=== PATIENT | female | born 1995 | race African-American/Black ===

== ENCOUNTER 2018-03-17 18:48 | Emergency (ER) | payer OTHER ==
[2018-03-17 18:53] VITALS: BP 117/73
--- NOTE | 2018-03-17 18:58 | ED Physician Documentation ---
History of Present Illness - Stated complaint Stated Complaint: FEMALE - Chief complaint Chief Complaint: General - History obtained from History obtained from: Patient - History of Present Illness Timing: How many weeks ago (4) Pain level max: 3 Pain level now: 1 Improved by: azo yesterday Worsened by: urination - Additonal information Additional information: Patient is a 22-year-old female who presents to the emergency department with intermittent dysuria for the past 4 weeks. Has become increasingly worse over the past 3 days. Also having increased frequency and urgency. No fevers. Does have mild low back pain. No vomiting. No possibility of . No changes in sexual partners. Has not been sexually active for the past 6 weeks. Review of Systems Constitutional: denies: Fever, Chills Nose: denies: Rhinorrhea / runny nose, Congestion Throat: denies: Sore throat Respiratory: denies: Cough GI: denies: Abdominal Pain, Nausea, Vomiting, Diarrhea : reports: Dysuria, Frequency, Hesitancy. denies: Incontinent, Hematuria, Discharge Skin: denies: Rash Musculoskeletal: denies: Neck pain, Back pain Neurologic: denies: Headache PD PAST MEDICAL HISTORY - Past Medical History Past Medical History: Yes : Other (UTI) - Past Surgical History Past Surgical History: No - Present Medications Home Medications: Ambulatory Orders Medication Instructions Recorded Confirmed Nitrofurantoin Monohyd/M-Cryst 100 mg PO BID #10 capsule 03/17/18 [Macrobid 100 mg Capsule] - Allergies Allergies/Adverse Reactions: Allergies Allergy/AdvReac Type Severity Reaction Status Date / Time No Known Drug Allergies Allergy Verified 03/17/18 18:53 - Living Situation Living Arrangement: reports: At home - Social History Does the pt smoke?: No Does the pt have substance abuse?: No - Family History Family history: reports: Non contributory PD ED PE NORMAL - Vitals Vital signs reviewed: Yes - General General: Alert and oriented X 3, No acute distress - HEENT HEENT: Moist mucous membranes - Neck Neck: Supple, no meningeal sign - Cardiac Cardiac: RRR - Respiratory Respiratory: No respiratory distress, Clear bilaterally - Abdomen Abdomen: Soft, Non tender, Non distended - Female Female : Pt declined - Back Back: No CVA TTP - Derm Derm: Warm and dry, No rash - Neuro Neuro: Alert and oriented X 3 Results - Vitals Vitals: Vital Signs - 24 hr 03/17/18 18:51 Temperature 37.4 C Heart Rate 69 Respiratory 16 Rate Blood Pressure 117/73 O2 Saturation 100 - Labs Labs: Laboratory Tests 03/17/18 03/17/18 18:56 18:56 Urine Color YELLOW Urine Clarity CLEAR Urine pH 6.5 Ur Specific [place] >=1.030 H >=1.030 H Urine Protein NEGATIVE Urine Glucose (UA) NEGATIVE Urine Ketones NEGATIVE Urine Occult Blood TRACE-INTA Urine Nitrite NEGATIVE Urine Bilirubin NEGATIVE Urine Urobilinogen 0.2 (NORMAL) Ur Leukocyte Esterase NEGATIVE Ur Microscopic Review NOT INDICATED Urine Culture Comments NOT INDICATED Urine HCG, Qual NEGATIVE PD MEDICAL DECISION MAKING - ED course Complexity details: reviewed results, re-evaluated patient, considered differential, d/w patient ED course: Patient is a 22-year-old female presents to the emergency department with a history suggestive of a UTI. No STD risk factors. Declines a pelvic examination. Does understand that by treating for a presumed UTI we could miss alternative diagnoses. Patient states that she will follow-up closely with her doctor if she fails to improve as expected. Patient counseled regarding signs and symptoms for which I believe and urgent re-evaluation would be necessary. Patient with good understanding of and agreement to plan and is comfortable going home at this time This document was made in part using voice recognition software. While efforts are made to proofread this document, sound alike and grammatical errors may occur. Departure - Departure Disposition: 01 Home, Self Care Clinical Impression: UTI (urinary tract infection) Qualifiers: Urinary tract infection type: acute cystitis Hematuria presence: without hematuria Qualified Code(s): N30.00 - Acute cystitis without hematuria Condition: Good Instructions: ED UTI Cystitis Female Follow-Up: your,doctor in 4-5 days if not better [Other] Prescriptions: Nitrofurantoin Monohyd/M-Cryst [Macrobid 100 mg Capsule] 100 mg PO BID #10 capsule Comments: Take all antibiotics until gone. Return if you worsen. If you are not improving after the antibiotics, you should follow-up with your doctor for a pelvic exam for other etiologies of your symptoms. Discharge Date/Time: 03/17/18 19:37
[2018-03-17 19:04] LABS: BILIRUBIN,URINE NEGATIVE (NEGATIVE); GLUCOSE, URINE (UA) NEGATIVE (NEGATIVE); KETONES,URINE (UA) NEGATIVE (NEGATIVE); LEUKOCYTE ESTERASE, URINE NEGATIVE (NEGATIVE); NITRITE,URINE NEGATIVE (NEGATIVE); OCCULT BLOOD,URINE TRACE-INTA (NEGATIVE); PH,URINE 6.5 PH (5.0-7.5); PROTEIN,URINE NEGATIVE (NEGATIVE); UROBILINOGEN,URINE 0.2 (NORMAL) E.U./dL (NORMAL)
[2018-03-17 19:05] LABS: CLARITY,URINE CLEAR (CLEAR)
[2018-03-17 19:08] LABS: HCG UR QUAL NEGATIVE
[2018-03-17] MEDS ORDERED: NITROFURANTOIN MACRO 100 MG CAPSULE PO STA (19:21)
[2018-03-17] MEDS ORDERED: PHENAZOPYRIDINE 100 MG TABLET PO STA (19:21)
== END 2018-03-17 19:37 | disposition home or self-care (01) ==
LOC: ED 18:48
DX: N30.00 Acute cystitis without hematuria (principal)
CPT/HCPCS: 81003; 81025; 99283; A9270; 81001; 87086

== ENCOUNTER 2018-03-25 21:34 | Emergency (ER) | payer OTHER ==
[2018-03-25 22:22] LABS: BILIRUBIN,URINE NEGATIVE (NEGATIVE); GLUCOSE, URINE (UA) NEGATIVE (NEGATIVE); KETONES,URINE (UA) TRACE mg/dL (NEGATIVE); LEUKOCYTE ESTERASE, URINE NEGATIVE (NEGATIVE); NITRITE,URINE NEGATIVE (NEGATIVE); OCCULT BLOOD,URINE SMALL (NEGATIVE); PH,URINE 6.5 PH (5.0-7.5); PROTEIN,URINE NEGATIVE (NEGATIVE); UROBILINOGEN,URINE 0.2 (NORMAL) E.U./dL (NORMAL)
[2018-03-25 22:25] LABS: CLARITY,URINE CLEAR (CLEAR)
[2018-03-25 22:26] LABS: HCG UR QUAL NEGATIVE
[2018-03-25 22:29] LABS: BACTERIA,URINE Few /HPF (None Seen); MUCUS,URINE Few Strands; SQUAMOUS EPITHELIAL CELL,UR MOD Squamous (<= Few)
[2018-03-25] MEDS ORDERED: LIDOCAINE PATCH 5% TOP STA (23:19)
[2018-03-25] MEDS ORDERED: IBUPROFEN 600 MG TABLET PO STA (23:19)
--- NOTE | 2018-03-25 23:33 | ED Physician Documentation ---
PD HPI BACK PAIN - Stated complaint Stated Complaint: L SIDE PX - Chief complaint Chief Complaint: Abd Pain - History obtained from History obtained from: Patient - History of Present Illness Timing - onset: Today Timing - details: Gradual onset, Still present Location: Lower, Left Quality: Pain, Spasm Associated symptoms: No: Fever, Weakness Worsened by: Movement, Lifting Similar symptoms before: No diagnosis Recently seen: Not recently seen - Additional information Additional information: Patient is a 22 year old female with no significant past medical history who is presenting to the emergency department for left sided pain. patient states that she was running with a weighted vest when she developed some pain. patient reports that tonight when she tried to go to sleep she couldn't get comfortable so she came in for evaluation. Review of Systems Ten Systems: 10 systems reviewed and negative : denies: Dysuria, Frequency, Discharge, Vaginal bleeding Musculoskeletal: reports: Back pain PD PAST MEDICAL HISTORY - Past Medical History Past Medical History: Yes : Other - Past Surgical History Past Surgical History: No - Present Medications Home Medications: Ambulatory Orders Medication Instructions Recorded Confirmed Nitrofurantoin Monohyd/M-Cryst 100 mg PO BID #10 capsule 03/17/18 [Macrobid 100 mg Capsule] Cyclobenzaprine [Flexeril] 10 mg PO TID PRN #10 tablet 03/25/18 Lidocaine Patch 5% [Lidoderm Patch] 1 each TOP DAILY #10 patch 03/25/18 - Allergies Allergies/Adverse Reactions: Allergies Allergy/AdvReac Type Severity Reaction Status Date / Time No Known Drug Allergies Allergy Verified 03/17/18 18:53 - Social History Does the pt smoke?: No Smoking Status: Never smoker Does the pt have substance abuse?: No - POLST Patient has POLST: No PD ED PE NORMAL - Vitals Vital signs reviewed: Yes - General General: Alert and oriented X 3, No acute distress - HEENT HEENT: Atraumatic, PERRL - Cardiac Cardiac: RRR - Respiratory Respiratory: No respiratory distress - Abdomen Abdomen: Soft, Non tender, Non distended - Derm Derm: Normal color - Extremities Extremities: No deformity - Neuro Neuro: Alert and oriented X 3, No motor deficit Eye Opening: Spontaneous Motor: Obeys Commands Verbal: Oriented GCS Score: 15 - Psych Psych: Normal mood PD ED PE EXPANDED - Back Back: Soft tissue tenderness (mild tenderness to palaption of left lateral back) Results - Vitals Vitals: Vital Signs - 24 hr 03/25/18 03/25/18 21:42 23:08 Temperature 36.8 C Heart Rate 75 69 Respiratory 18 16 Rate Blood Pressure 100/61 109/80 O2 Saturation 100 99 Oxygen O2 Source Room air - Labs Labs: Laboratory Tests 03/25/18 03/25/18 22:15 22:15 Urine Color YELLOW Urine Clarity CLEAR Urine pH 6.5 Ur Specific [place] 1.025 1.025 Urine Protein NEGATIVE Urine Glucose (UA) NEGATIVE Urine Ketones TRACE Urine Occult Blood SMALL H Urine Nitrite NEGATIVE Urine Bilirubin NEGATIVE Urine Urobilinogen 0.2 (NORMAL) Ur Leukocyte Esterase NEGATIVE Urine RBC 6-10 H Urine WBC 0-3 Ur Squamous Epith Cells MOD Squamous H Urine Bacteria Few Urine Mucus Few Strands Ur Microscopic Review INDICATED Urine Culture Comments NOT INDICATED Urine HCG, Qual NEGATIVE PD MEDICAL DECISION MAKING - ED course Complexity details: reviewed old records, reviewed results, re-evaluated patient , considered differential, d/w patient ED course: patient was seen and examined at bedside. Urine was collected. patient showed no sign of acute infection. Patient was treated with ibuprofen and lidoderm patch. Patient required no further work up and was stable for discharge with outpatient follow up. Departure - Departure Disposition: 01 Home, Self Care Clinical Impression: Low back strain Condition: Good Instructions: ED Spasm Back No Trauma Follow-Up: primary,care provider [Other] - Within 3 Days Prescriptions: Cyclobenzaprine [Flexeril] 10 mg PO TID PRN #10 tablet PRN Reason: Spasms Lidocaine Patch 5% [Lidoderm Patch] 1 each TOP DAILY #10 patch Comments: Your diagnostics today were within normal limits. Your symptoms are likely secondary to a muscle strain. You should alternate between motrin and tylenol as needed for pain. You should also apply ice and heat as well as the lidoderm patch. You can take the flexeril for spasm but you cannot drive, work or operate heavy machinery while taking it. You should follow up with your doctor if your symptoms persist. You may return to the emergency department at any time for new, worsening or uncontrollable symptoms. Forms: Activity restrictions
[2018-03-26 00:21] VITALS: BP 110/68
== END 2018-03-25 23:45 | disposition home or self-care (01) ==
LOC: ED 21:34
DX: S39.012A Strain of muscle, fascia and tendon of lower back, initial encounter (principal); Y93.02 Activity, running
CPT/HCPCS: 81001; 81025; 99283; A9270; 81003; 87086

== ENCOUNTER 2018-04-20 09:29 | Emergency (ER) | payer OTHER ==
[2018-04-20 09:51] LABS: BILIRUBIN,URINE NEGATIVE (NEGATIVE); GLUCOSE, URINE (UA) NEGATIVE (NEGATIVE); KETONES,URINE (UA) NEGATIVE (NEGATIVE); LEUKOCYTE ESTERASE, URINE NEGATIVE (NEGATIVE); NITRITE,URINE NEGATIVE (NEGATIVE); OCCULT BLOOD,URINE NEGATIVE (NEGATIVE); PROTEIN,URINE NEGATIVE (NEGATIVE); UROBILINOGEN,URINE 0.2 (NORMAL) E.U./dL (NORMAL)
[2018-04-20 09:54] LABS: CLARITY,URINE CLEAR (CLEAR)
[2018-04-20 09:55] LABS: HCG UR QUAL NEGATIVE
--- NOTE | 2018-04-20 11:30 | ED Physician Documentation ---
History of Present Illness - Stated complaint Stated Complaint: FEMALE - Chief complaint Chief Complaint: UTI - Additonal information Additional information: hx from pt 22 f found out her SO has herpes wants to be tested Review of Systems Constitutional: denies: Fever : reports: Dysuria. denies: Now EGA Skin: denies: Lesions PD PAST MEDICAL HISTORY - Past Medical History Past Medical History: No : Other - Past Surgical History Past Surgical History: No - Present Medications Home Medications: Ambulatory Orders Medication Instructions Recorded Confirmed No Known Home Medications [No 04/20/18 04/20/18 Known Home Medications] - Allergies Allergies/Adverse Reactions: Allergies Allergy/AdvReac Type Severity Reaction Status Date / Time No Known Drug Allergies Allergy Verified 04/20/18 09:37 - Social History Does the pt smoke?: No Smoking Status: Never smoker Does the pt drink ETOH?: No Does the pt have substance abuse?: No - Immunizations Immunizations are current?: Yes - POLST Patient has POLST: No PD ED PE NORMAL - Vitals Vital signs reviewed: Yes - General General: Alert and oriented X 3 - Cardiac Cardiac: RRR - Respiratory Respiratory: No respiratory distress, Clear bilaterally - Abdomen Abdomen: Non tender - Female 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 : 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), Other (no herpes lesions, no dc, no CMT, cultures taken for all) Results - Vitals Vitals: Vital Signs - 24 hr 04/20/18 09:33 Temperature 37.2 C Heart Rate 79 Respiratory 18 Rate Blood Pressure 119/55 L O2 Saturation 100 Oxygen O2 Source Room air - Labs Labs: Laboratory Tests 04/20/18 09:40 Urine Color YELLOW Urine Clarity CLEAR Urine pH 7.0 Ur Specific [place] 1.015 Urine Protein NEGATIVE Urine Glucose (UA) NEGATIVE Urine Ketones NEGATIVE Urine Occult Blood NEGATIVE Urine Nitrite NEGATIVE Urine Bilirubin NEGATIVE Urine Urobilinogen 0.2 (NORMAL) Ur Leukocyte Esterase NEGATIVE Ur Microscopic Review NOT INDICATED Urine Culture Comments NOT INDICATED Urine HCG, Qual NEGATIVE Departure - Departure Disposition: 01 Home, Self Care Clinical Impression: Exposure to STD Condition: Good Instructions: STD Poss Comments: Your exam was normal - no sign of herpes. We took swabs to est for bacterial vaginosis, trichomonas, gonorrhea, chlamydia as well as herpes The ER staff will call you if any of the results are positive. [facility] can also have [facility] for results. Given the normal exam I would not recommend any treatment unless the tests come back positive If you think you might need testing for HIV, that would best [place]
[2018-04-20 11:43] VITALS: BP 110/72
== END 2018-04-20 11:44 | disposition home or self-care (01) ==
LOC: ED 09:29
DX: Z20.2 Contact with and (suspected) exposure to infections with a predominantly sexual mode of transmission (principal)
CPT/HCPCS: 81001; 81003; 81025; 81599; 86695; 86696; 87086; 87210; 87491; 87529; 87591; 99282; 99283

== ENCOUNTER 2018-05-05 16:21 | Emergency (ER) | payer OTHER ==
[2018-05-05 16:36] VITALS: BP 119/67
[2018-05-05 16:52] LABS: BILIRUBIN,URINE NEGATIVE (NEGATIVE); GLUCOSE, URINE (UA) NEGATIVE (NEGATIVE); KETONES,URINE (UA) NEGATIVE (NEGATIVE); LEUKOCYTE ESTERASE, URINE NEGATIVE (NEGATIVE); NITRITE,URINE NEGATIVE (NEGATIVE); OCCULT BLOOD,URINE TRACE-INTA (NEGATIVE); PROTEIN,URINE NEGATIVE (NEGATIVE); UROBILINOGEN,URINE 0.2 (NORMAL) E.U./dL (NORMAL)
[2018-05-05 16:57] LABS: CLARITY,URINE CLEAR (CLEAR); HCG UR QUAL NEGATIVE
--- NOTE | 2018-05-05 16:58 | ED Physician Documentation ---
History of Present Illness - Stated complaint Stated Complaint: FEMALE - Chief complaint Chief Complaint: UTI - History obtained from History obtained from: Patient - History of Present Illness Timing: How many weeks ago (1) Pain level max: 3 Pain level now: 3 Improved by: nothing Worsened by: nothing - Additonal information Additional information: Patient is a 22-year-old female who presents to the emergency department complaining of vaginal discharge, itching and discomfort. Was recently treated with azithromycin for chlamydia. Tested negative for gonorrhea. She is concerned that she may have a yeast infection or bacterial vaginitis. No fevers. No abdominal pain. No diarrhea or constipation. No vomiting. Denies any possibility of . Review of Systems Constitutional: denies: Fever, Chills Ears: denies: Ear pain Nose: denies: Rhinorrhea / runny nose, Congestion Respiratory: denies: Cough GI: denies: Abdominal Pain, Nausea, Vomiting, Diarrhea : reports: Discharge. denies: Vaginal bleeding Skin: denies: Rash Musculoskeletal: denies: Neck pain, Back pain Neurologic: denies: Focal weakness, Numbness, Headache PD PAST MEDICAL HISTORY - Past Medical History Past Medical History: No : Other - Past Surgical History Past Surgical History: No - Present Medications Home Medications: Ambulatory Orders Medication Instructions Recorded Confirmed Metronidazole [Flagyl] 500 mg PO BID #14 tablet 05/05/18 - Allergies Allergies/Adverse Reactions: Allergies Allergy/AdvReac Type Severity Reaction Status Date / Time No Known Drug Allergies Allergy Verified 05/05/18 17:22 - Living Situation Living Arrangement: reports: At home - Social History Does the pt smoke?: No Smoking Status: Never smoker Does the pt drink ETOH?: No Does the pt have substance abuse?: No - Family History Family history: reports: Non contributory - Immunizations Immunizations are current?: Yes - POLST Patient has POLST: No PD ED PE NORMAL - Vitals Vital signs reviewed: Yes - General General: Alert and oriented X 3 - HEENT HEENT: Moist mucous membranes - Neck Neck: Supple, no meningeal sign - Cardiac Cardiac: RRR - Respiratory Respiratory: No respiratory distress, Clear bilaterally - Abdomen Abdomen: Soft, Non tender, Non distended - 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 no CMT, no adnexal tenderness.) - Back Back: No CVA TTP, No spinal TTP - Derm Derm: Warm and dry - Neuro Neuro: Alert and oriented X 3 - Psych Psych: Normal mood, Normal affect Results - Vitals Vitals: Vital Signs - 24 hr 05/05/18 16:31 Temperature 37.4 C Heart Rate 75 Respiratory 16 Rate Blood Pressure 119/67 O2 Saturation 100 Oxygen O2 Source Room air - Labs Labs: Microbiology 05/05/18 17:09 TERESA Preparation - Final Other - Vaginal 05/05/18 17:09 Wet Prep - Final Vaginal Laboratory Tests 05/05/18 16:45 Urine Color YELLOW Urine Clarity CLEAR Urine pH 7.0 Ur Specific [place] 1.020 Urine Protein NEGATIVE Urine Glucose (UA) NEGATIVE Urine Ketones NEGATIVE Urine Occult Blood TRACE-INTA Urine Nitrite NEGATIVE Urine Bilirubin NEGATIVE Urine Urobilinogen 0.2 (NORMAL) Ur Leukocyte Esterase NEGATIVE Ur Microscopic Review NOT INDICATED Urine Culture Comments NOT INDICATED Urine HCG, Qual NEGATIVE PD MEDICAL DECISION MAKING - ED course Complexity details: reviewed results, re-evaluated patient, considered differential, d/w patient ED course: Patient is a 22-year-old female who presents to the emergency department with vaginal discharge and pain. Recently treated for chlamydia. Will resend her Chlamydia testing to ensure the infection is cleared. Appears to have bacterial vaginitis and will place on Flagyl for this. Patient counseled regarding signs and symptoms for which I believe and urgent re-evaluation would be necessary. Patient with good understanding of and agreement to plan and is comfortable going home at this time This document was made in part using voice recognition software. While efforts are made to proofread this document, sound alike and grammatical errors may occur. - Sepsis Event Vital Signs: Vital Signs - 24 hr 05/05/18 16:31 Temperature 37.4 C Heart Rate 75 Respiratory 16 Rate Blood Pressure 119/67 O2 Saturation 100 Oxygen O2 Source Room air Departure - Departure Disposition: 01 Home, Self Care Clinical Impression: Bacterial vaginitis Condition: Good Instructions: ED Vaginosis Bacterial Follow-Up: your,doctor in 1 week if not better [Other] Prescriptions: Metronidazole [Flagyl] 500 mg PO BID #14 tablet Comments: Take the Flagyl until gone. Return if you worsen. Do not drink alcohol with this visit will make you violently ill. Return if you worsen Discharge Date/Time: 05/05/18 17:42
[2018-05-05] MEDS ORDERED: metroNIDAZOLE 250 MG TABLET PO STA (17:32)
== END 2018-05-05 17:42 | disposition home or self-care (01) ==
LOC: ED 16:21
DX: N76.0 Acute vaginitis (principal); B96.89 Other specified bacterial agents as the cause of diseases classified elsewhere
CPT/HCPCS: 81003; 81025; 87210; 87220; 87491; 87591; 99283; A9270; 81001; 87086

== ENCOUNTER 2018-05-29 12:50 | Emergency (ER) | payer OTHER ==
[2018-05-29 13:08] VITALS: BP 103/47
[2018-05-29 13:24] LABS: BILIRUBIN,URINE NEGATIVE (NEGATIVE); GLUCOSE, URINE (UA) NEGATIVE (NEGATIVE); KETONES,URINE (UA) NEGATIVE (NEGATIVE); LEUKOCYTE ESTERASE, URINE NEGATIVE (NEGATIVE); NITRITE,URINE NEGATIVE (NEGATIVE); OCCULT BLOOD,URINE NEGATIVE (NEGATIVE); PROTEIN,URINE NEGATIVE (NEGATIVE); UROBILINOGEN,URINE 0.2 (NORMAL) E.U./dL (NORMAL)
[2018-05-29 13:26] LABS: CLARITY,URINE CLEAR (CLEAR); HCG UR QUAL NEGATIVE
--- NOTE | 2018-05-29 13:52 | ED Physician Documentation ---
PD HPI FEMALE - Stated complaint Stated Complaint: FEMALE - Chief complaint Chief Complaint: General - History obtained from History obtained from: Patient - History of Present Illness Timing - onset: How many days ago (3) Timing - duration: Days (3) Timing - details: Gradual onset, Still present Associated symptoms: Vaginal discharge Contributing factors: control, Other (has had BV previously). No: Exposed to STD Similar symptoms before: Diagnosis (BV) Recently seen: Not recently seen - Additional information Additional information: 22-year-old female has had a prior history of chlamydia which was treated with doxycycline and following that she developed bacterial vaginosis of foul- smelling discharge and she was treated then with metronidazole with rapid resolution of her symptoms. She has had a recent menstrual period and following this she has had return of this foul-smelling yellowish discharge. She denies any exposure to STD and states the symptoms and discharge are similar to previous for bacterial vaginosis. Review of Systems Constitutional: denies: Fever Eyes: denies: Decreased vision Ears: denies: Ear pain Nose: denies: Congestion Throat: denies: Sore throat Cardiac: denies: Chest pain / pressure, Palpitations Respiratory: denies: Dyspnea, Cough GI: denies: Abdominal Pain, Nausea, Vomiting : reports: Discharge. denies: Dysuria, Frequency Skin: denies: Rash Musculoskeletal: denies: Neck pain, Back pain, Extremity pain PD PAST MEDICAL HISTORY - Past Medical History : Other - Past Surgical History Past Surgical History: No - Present Medications Home Medications: Ambulatory Orders Medication Instructions Recorded Confirmed Metronidazole [Flagyl] 500 mg PO BID #14 tablet 05/05/18 Metronidazole 500 mg PO BID #14 tablet 05/29/18 - Allergies Allergies/Adverse Reactions: Allergies Allergy/AdvReac Type Severity Reaction Status Date / Time No Known Drug Allergies Allergy Verified 05/05/18 17:22 - Social History Does the pt smoke?: No Smoking Status: Never smoker Does the pt drink ETOH?: No Does the pt have substance abuse?: No - Immunizations Immunizations are current?: Yes - POLST Patient has POLST: No PD ED PE NORMAL - Vitals Vital signs reviewed: Yes (normal ) - General General: Alert and oriented X 3, No acute distress, Well developed/nourished - HEENT HEENT: Atraumatic, PERRL, EOMI - Respiratory Respiratory: No respiratory distress - Derm Derm: Normal color, Warm and dry, No rash - Extremities Extremities: No deformity, No edema - Neuro Neuro: Alert and oriented X 3, guest relation officer 2-12 intact, No motor deficit, No sensory deficit, Normal speech Eye Opening: Spontaneous Motor: Obeys Commands Verbal: Oriented GCS Score: 15 - Psych Psych: Normal mood, Normal affect Results - Vitals Vitals: Vital Signs - 24 hr 05/29/18 12:59 Temperature 36.7 C Heart Rate 60 Respiratory 16 Rate Blood Pressure 103/47 L O2 Saturation 99 Oxygen O2 Source Room air - Labs Labs: Laboratory Tests 05/29/18 05/29/18 13:11 13:11 Urine Color YELLOW Urine Clarity CLEAR Urine pH 6.0 Ur Specific [place] 1.025 1.025 Urine Protein NEGATIVE Urine Glucose (UA) NEGATIVE Urine Ketones NEGATIVE Urine Occult Blood NEGATIVE Urine Nitrite NEGATIVE Urine Bilirubin NEGATIVE Urine Urobilinogen 0.2 (NORMAL) Ur Leukocyte Esterase NEGATIVE Ur Microscopic Review NOT INDICATED Urine Culture Comments NOT INDICATED Urine HCG, Qual NEGATIVE PD MEDICAL DECISION MAKING - ED course Complexity details: reviewed old records, reviewed results, re-evaluated patient , considered differential, d/w patient ED course: 22-year-old female with a prior history of bacterial vaginosis that rapidly improved with use of metronidazole has recurrence of her symptoms. She has a foul-smelling yellowish discharge. She has opted for treatment without specimen today. I have encouraged her to follow-up with GEOLOGIC TECHNICIAN should she have recurrence of her symptoms again. - Sepsis Event Vital Signs: Vital Signs - 24 hr 05/29/18 12:59 Temperature 36.7 C Heart Rate 60 Respiratory 16 Rate Blood Pressure 103/47 L O2 Saturation 99 Oxygen O2 Source Room air Departure - Departure Disposition: 01 Home, Self Care Clinical Impression: Bacterial vaginitis Instructions: ED Vaginosis Bacterial Follow-Up: YOVANNY DE LUNA [Primary Care Provider] - Prescriptions: Metronidazole 500 mg PO BID #14 tablet Forms: Activity restrictions
== END 2018-05-29 15:10 | disposition home or self-care (01) ==
LOC: ED 12:50
DX: N76.0 Acute vaginitis (principal)
CPT/HCPCS: 81001; 81003; 81025; 87086; 99283

== ENCOUNTER 2018-05-30 14:31 | Emergency (ER) | payer OTHER ==
--- NOTE | 2018-05-30 14:57 | ED Physician Documentation ---
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 She has been having more discharge and was seen yesterday and diagnosed likely with likely BV, she refused a pelvic exam at the time per her. Now with increased discharge today and would like to pursue retesting for BV versus STDs. There was a little bit of blood in the discharge and she also had a panic attack but denies drinking alcohol.) Review of Systems Constitutional: denies: Fever, Chills Nose: denies: Rhinorrhea / runny nose, Congestion Cardiac: denies: Chest pain / pressure, Palpitations Respiratory: denies: Dyspnea, Cough GI: denies: Abdominal Pain PD PAST MEDICAL HISTORY - Past Medical History : Other - Past Surgical History Past Surgical History: No - Present Medications Home Medications: Ambulatory Orders Medication Instructions Recorded Confirmed Metronidazole [Flagyl] 500 mg PO BID #14 tablet 05/05/18 Metronidazole 500 mg PO BID #14 tablet 05/29/18 Clindamycin Phosphate [Clindesse] 5 gm VG DAILY #7 crm.er..g. 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 (Elli Garcia RN), Other (A small amount of yellowish discharge with a slight blood-tinged, no bimanual tenderness.) - Neuro Neuro: Alert and oriented X 3, Normal speech Results - Vitals Vitals: Vital Signs - 24 hr 05/30/18 14:33 Temperature 36.9 C Heart Rate 53 L Respiratory 16 Rate Blood Pressure 143/105 H O2 Saturation 98 Oxygen O2 Source Room air - Labs Labs: Microbiology 05/30/18 15:40 Wet Prep - Final Genital - Cervix Laboratory Tests 05/30/18 05/30/18 05/30/18 15:10 15:10 15:23 WBC 4.9 RBC 4.37 Hgb 12.7 Hct 38.8 MCV 88.8 MCH 29.1 MCHC 32.8 RDW 13.1 Sodium 139 Potassium 3.7 Chloride 105 Carbon Dioxide 27 Anion Gap 7.0 BUN 16 Creatinine 0.9 Estimated GFR (MDRD) 97 Glucose 94 Calcium 9.2 Total Bilirubin 0.5 AST 24 ALT 17 Alkaline Phosphatase 81 Total Protein 7.6 Albumin 4.1 Globulin 3.5 Albumin/Globulin Ratio 1.2 Lipase 30 Urine Color YELLOW Urine Clarity CLEAR Urine pH 6.0 Ur Specific Mayo 1.025 Urine Protein TRACE Urine Glucose (UA) NEGATIVE Urine Ketones TRACE Urine Occult Blood NEGATIVE Urine Nitrite NEGATIVE Urine Bilirubin NEGATIVE Urine Urobilinogen 0.2 (NORMAL) Ur Leukocyte Esterase NEGATIVE Ur Microscopic Review NOT INDICATED Urine Culture Comments NOT INDICATED Urine HCG, Qual NEGATIVE PD MEDICAL DECISION MAKING - ED course ED course: She does have clue cells, but less than 20%, but that may be because she already took a dose of Flagyl. Not sure if the panic attack and other symptoms she had this morning were from the Flagyl, seems unlikely since she has had taken Flagyl before without ill effect. We discussed this, she plans to continue trying Flagyl but if has more side effects and ill effects from meds, I am giving her vaginal clindamycin to substitute. - Sepsis Event Vital Signs: Vital Signs - 24 hr 05/30/18 14:33 Temperature 36.9 C Heart Rate 53 L Respiratory 16 Rate Blood Pressure 143/105 H O2 Saturation 98 Oxygen O2 Source Room air Departure - Departure Disposition: 01 Home, Self Care Clinical Impression: Bacterial vaginitis Condition: Good Record reviewed to determine appropriate education?: Yes Instructions: ED Vaginosis Bacterial Prescriptions: Clindamycin Phosphate [Clindesse] 5 gm VG DAILY #7 crm.er..g. Comments: Continue the metronidazole, if you have further ill effects from it though you can switch to the clindamycin vaginal cream. Return if worsening. Follow-up with your doctor in about a week. Your blood pressure was elevated today on check into the emergency department. This does not mean that you have hypertension, it is a common phenomenon to come to the emergency department and have elevated blood pressure. I recommend that you see your primary care physician within the week to have it rechecked when you are feeling better.
[2018-05-30 15:30] LABS: ALBUMIN 4.1 g/dL (3.2-5.5); ALBUMIN/GLOBULIN RATIO 1.2 (1.0-2.2); BILIRUBIN,TOTAL 0.5 mg/dL (0.2-1.0); CALCIUM 9.2 mg/dL (8.5-10.3); CREATININE 0.9 mg/dL (0.4-1.0); TOTAL PROTEIN 7.6 g/dL (6.7-8.2)
[2018-05-30 15:31] LABS: BILIRUBIN,URINE NEGATIVE (NEGATIVE); GLUCOSE, URINE (UA) NEGATIVE (NEGATIVE); KETONES,URINE (UA) TRACE mg/dL (NEGATIVE); LEUKOCYTE ESTERASE, URINE NEGATIVE (NEGATIVE); NITRITE,URINE NEGATIVE (NEGATIVE); OCCULT BLOOD,URINE NEGATIVE (NEGATIVE); PROTEIN,URINE TRACE mg/dL (NEGATIVE); UROBILINOGEN,URINE 0.2 (NORMAL) E.U./dL (NORMAL)
[2018-05-30 15:32] LABS: CLARITY,URINE CLEAR (CLEAR)
[2018-05-30 15:33] LABS: HCG UR QUAL NEGATIVE
[2018-05-30 15:35] LABS: BASOPHILS % (AUTO) 0.7 %; EOSINOPHILS % (AUTO) 0.4 %; HGB - HEMOGLOBIN 12.7 g/dL (12.0-16.0); LYMPHOCYTES # (AUTO) 1.5 10^3/uL (1.5-3.5); LYMPHOCYTES % (AUTO) 30.6 %; MEAN CORPUSCULAR HEMOGLOBIN 29.1 pg (27.0-31.0); MEAN CORPUSCULAR HGB CONC 32.8 g/dL (32.0-36.0); MEAN CORPUSCULAR VOLUME 88.8 fL (81.0-99.0); MEAN PLATELET VOLUME 8.2 fL (7.9-10.8); MONOCYTES # (AUTO) 0.4 10^3/uL (0.0-1.0); NEUTROPHILS # (AUTO) 2.9 10^3/uL (1.5-6.6); NEUTROPHILS % (AUTO) 59.3 %; PLT - PLATELET COUNT 245 10^3/uL (130-450); RED BLOOD COUNT 4.37 10^6/uL (4.20-5.40); RED CELL DISTRIBUTION WIDTH 13.1 % (12.0-15.0); WHITE BLOOD COUNT 4.9 x10^3/uL (4.8-10.8)
[2018-05-30 15:58] LABS: PLATELET ESTIMATE, MANUAL NORMAL (130-450,000) (NORMAL); PLATELET MORPHOLOGY 1+ LARGE PLATELETS (NORMAL)
[2018-05-30 16:10] VITALS: BP 138/88
== END 2018-05-30 16:09 | disposition home or self-care (01) ==
LOC: ED 14:31
DX: N76.0 Acute vaginitis (principal); R03.0 Elevated blood-pressure reading, without diagnosis of hypertension
CPT/HCPCS: 36415; 80053; 81001; 81003; 81025; 83690; 85025; 87086; 87210; 87491; 87591; 99283

== ENCOUNTER 2018-06-08 19:11 | Emergency (ER) | payer OTHER ==
--- NOTE | 2018-06-08 19:48 | ED Physician Documentation ---
PD HPI FOCAL NEURO - Stated complaint Stated Complaint: RG LEG PRESSURE/UNABLE TO MOVE - Chief complaint Chief Complaint: Abd Pain - History obtained from History obtained from: Patient - History of Present Illness Timing - onset: Today (This is a previously healthy 22-year-old woman who today around 1:00 developed some very odd neurologic symptoms. It was preceded by back pain which is now gone. Now she has right leg numbness and is unable to move it because of muscular weakness at all. She cannot walk on it. She also notes milder symptoms in the right arm. She said she had similar symptoms before that were potentially chocked up as a panic attack, but she is not panicky now in the symptoms certainly are all lateralizing to the right.) - Additional information Additional information: She denies any recent travel or mosquito bites. Review of Systems Ten Systems: 10 systems reviewed and negative Constitutional: denies: Fever, Chills GI: denies: Abdominal Pain, Nausea, Vomiting Neurologic: reports: Focal weakness, Numbness, Headache (She has been having on and off headaches for the last few days but none now.). denies: Generalized weakness, Syncope PD PAST MEDICAL HISTORY - Past Medical History : Other - Past Surgical History Past Surgical History: No - Present Medications Home Medications: Ambulatory Orders Medication Instructions Recorded Confirmed Metronidazole [Flagyl] 500 mg PO BID #14 tablet 05/05/18 Metronidazole 500 mg PO BID #14 tablet 05/29/18 Clindamycin Phosphate [Clindesse] 5 gm VG DAILY #7 crm.er..g. 05/30/18 - Allergies Allergies/Adverse Reactions: Allergies Allergy/AdvReac Type Severity Reaction Status Date / Time No Known Drug Allergies Allergy Verified 05/30/18 14:37 - Social History Does the pt smoke?: No Smoking Status: Never smoker Does the pt drink ETOH?: No Does the pt have substance abuse?: No - Immunizations Immunizations are current?: Yes - POLST Patient has POLST: No PD ED PE NORMAL - Vitals Vital signs reviewed: Yes - General General: Alert and oriented X 3, No acute distress - HEENT HEENT: PERRL, EOMI - Neck Neck: Supple, no meningeal sign, No bony TTP - Cardiac Cardiac: RRR, No murmur - Respiratory Respiratory: No respiratory distress, Clear bilaterally - Abdomen Abdomen: Normal bowel sounds, Soft, Non tender - Neuro Neuro: Alert and oriented X 3, Other (She has normal strength in the upper extremities,Which is most significant in the right thigh. She is unable to lift the thigh off the bed at all but does make visible effort to do so. She has symmetric and brisk reflexes throughout the lower extremities is going on there but testing the sensation and reflexes they are symmetric throughout the upper extremities. She does have diminished sensation on the right side from about T12 down. She is unable to lift her right leg off the bed at all due to weakness but does make visible effort to do so. The sensation in the right side is most market in the right thigh which is basically absent. She has brisk reflexes throughout the lower extremities.) Eye Opening: Spontaneous Motor: Obeys Commands Verbal: Oriented GCS Score: 15 - Psych Psych: Normal mood, Normal affect Results - Vitals Vitals: Vital Signs - 24 hr 06/08/18 06/08/18 06/08/18 19:23 20:27 21:03 Temperature 37.1 C Heart Rate 77 76 75 Respiratory 20 18 16 Rate Blood Pressure 111/42 L 100/50 L 118/68 O2 Saturation 100 100 100 Oxygen O2 Source Room air - Labs Labs: Laboratory Tests 06/08/18 06/08/18 06/08/18 19:52 19:52 20:35 WBC 4.4 L RBC 4.36 Hgb 12.7 Hct 39.3 MCV 90.2 MCH 29.1 MCHC 32.2 RDW 12.8 Plt Count 226 MPV 8.3 Neut # (Auto) 1.8 Lymph # (Auto) 2.1 Jerauld # (Auto) 0.5 Eos # (Auto) 0.0 Baso # (Auto) 0.0 Absolute Nucleated RBC 0.00 Nucleated RBC % 0.0 Sodium 136 Potassium 3.1 L Chloride 104 Carbon Dioxide 25 Anion Gap 7.0 BUN 11 Creatinine 1.0 Estimated GFR (MDRD) 86 L Glucose 88 Calcium 9.3 Total Bilirubin 0.6 AST 26 ALT 18 Alkaline Phosphatase 78 Total Protein 7.7 Albumin 4.5 Globulin 3.2 Albumin/Globulin Ratio 1.4 Lipase 25 Urine Color YELLOW Urine Clarity CLEAR Urine pH 6.0 Ur Specific Goode 1.015 Urine Protein NEGATIVE Urine Glucose (UA) NEGATIVE Urine Ketones NEGATIVE Urine Occult Blood TRACE-INTA Urine Nitrite NEGATIVE Urine Bilirubin NEGATIVE Urine Urobilinogen 0.2 (NORMAL) Ur Leukocyte Esterase NEGATIVE Ur Microscopic Review NOT INDICATED Urine Culture Comments NOT INDICATED Urine HCG, Qual NEGATIVE - Rads (name of study) CT Head Radiology: EMP read contemporaneously (Mild acute left posterior ethmoid sinusitis without acute intracranial abnormality) PD MEDICAL DECISION MAKING - ED course ED course: This is a 22-year-old woman who presents with acute right lower extremity paralysis with sensory deficits and what seems like a spinal level right around T11 or so. Would not be Guillan- Perez because she has brisk reflexes. Transverse myelitis or similar pathology is considered most likely. Psychogenic component is also considered. She sent for an urgent CT of the head but will likely need transfer to a facility capable of urgent MRI and neurologic consult and she was accepted at [facility] by Haider Lai at 8:08 PM and cobras were completed. - Sepsis Event Vital Signs: Vital Signs - 24 hr 06/08/18 06/08/18 06/08/18 19:23 20:27 21:03 Temperature 37.1 C Heart Rate 77 76 75 Respiratory 20 18 16 Rate Blood Pressure 111/42 L 100/50 L 118/68 O2 Saturation 100 100 100 Oxygen O2 Source Room air Departure - Departure Disposition: 02 Transfer Acute Care Hosp
[2018-06-08 20:03] LABS: BASOPHILS % (AUTO) 0.8 %; EOSINOPHILS % (AUTO) 0.6 %; HGB - HEMOGLOBIN 12.7 g/dL (12.0-16.0); LYMPHOCYTES # (AUTO) 2.1 10^3/uL (1.5-3.5); LYMPHOCYTES % (AUTO) 48.1 %; MEAN CORPUSCULAR HEMOGLOBIN 29.1 pg (27.0-31.0); MEAN CORPUSCULAR HGB CONC 32.2 g/dL (32.0-36.0); MEAN CORPUSCULAR VOLUME 90.2 fL (81.0-99.0); MEAN PLATELET VOLUME 8.3 fL (7.9-10.8); MONOCYTES # (AUTO) 0.5 10^3/uL (0.0-1.0); MONOCYTES % (AUTO) 10.6 %; NEUTROPHILS # (AUTO) 1.8 10^3/uL (1.5-6.6); NEUTROPHILS % (AUTO) 39.9 %; PLT - PLATELET COUNT 226 10^3/uL (130-450); RED BLOOD COUNT 4.36 10^6/uL (4.20-5.40); RED CELL DISTRIBUTION WIDTH 12.8 % (12.0-15.0); WHITE BLOOD COUNT 4.4 x10^3/uL (4.8-10.8)
[2018-06-08 20:12] LABS: ALBUMIN 4.5 g/dL (3.2-5.5); ALBUMIN/GLOBULIN RATIO 1.4 (1.0-2.2); BILIRUBIN,TOTAL 0.6 mg/dL (0.2-1.0); CALCIUM 9.3 mg/dL (8.5-10.3); TOTAL PROTEIN 7.7 g/dL (6.7-8.2)
--- NOTE | 2018-06-08 20:37 | CT Report ---
Procedure Date: 06/08/2018 Accession Number: [id number] / [id number] Procedure: CT - Head W/O CPT Code: FULL RESULT: EXAM: CT HEAD EXAM DATE: 06/08/2018 08:15 PM. CLINICAL HISTORY: Right-side deficits COMPARISON: None. TECHNIQUE: Multiaxial CT images were obtained from the foramen magnum to the vertex. Reformats: Sagittal and coronal. IV contrast: None. In accordance with CT protocol optimization, one or more of the following dose reduction techniques were utilized for this exam: automated exposure control, adjustment of mA and/or KV based on patient size, or use of iterative reconstructive technique. FINDINGS: Parenchyma: No intraparenchymal hemorrhage, mass effect, or CT findings of evolving acute/subacute infarct. Sanchez-white differentiation is distinct. Extraaxial Spaces: Normal for age. No subdural or epidural collections identified. Ventricles: The ventricles and basal cisterns are patent. No hydrocephalus or midline shift. Sinuses and Orbits: Trace fluid with air bubbles in the left posterior ethmoid air cells. The visualized paranasal sinuses and mastoid air cells are otherwise clear. Bones: No evidence of fracture or calvarial defect. Other: None. IMPRESSION: 1. Mild acute left posterior ethmoid sinusitis. 2. No acute intracranial abnormalities. RADIA
[2018-06-08 20:42] LABS: BILIRUBIN,URINE NEGATIVE (NEGATIVE); GLUCOSE, URINE (UA) NEGATIVE (NEGATIVE); KETONES,URINE (UA) NEGATIVE (NEGATIVE); LEUKOCYTE ESTERASE, URINE NEGATIVE (NEGATIVE); NITRITE,URINE NEGATIVE (NEGATIVE); OCCULT BLOOD,URINE TRACE-INTA (NEGATIVE); PROTEIN,URINE NEGATIVE (NEGATIVE); UROBILINOGEN,URINE 0.2 (NORMAL) E.U./dL (NORMAL)
[2018-06-08 20:44] LABS: CLARITY,URINE CLEAR (CLEAR)
[2018-06-08 20:45] LABS: HCG UR QUAL NEGATIVE
[2018-06-08] MEDS: POTASSIUM BICARB 25 MEQ TABLET PO STA (21:06)
[2018-06-08 22:04] VITALS: BP 122/76
== END 2018-06-08 22:17 | disposition short-term general hospital (02) ==
LOC: ED 19:11
DX: R53.1 Weakness (principal); G83.9 Paralytic syndrome, unspecified; R44.8 Other symptoms and signs involving general sensations and perceptions
CPT/HCPCS: 36415; 70450; 80053; 81003; 81025; 83690; 85025; 99284; A9270; 81001; 87086

== ENCOUNTER 2018-08-08 10:26 | Emergency (ER) | payer OTHER ==
[2018-08-08 11:01] LABS: BILIRUBIN,URINE NEGATIVE (NEGATIVE); GLUCOSE, URINE (UA) NEGATIVE (NEGATIVE); KETONES,URINE (UA) TRACE mg/dL (NEGATIVE); LEUKOCYTE ESTERASE, URINE NEGATIVE (NEGATIVE); NITRITE,URINE NEGATIVE (NEGATIVE); OCCULT BLOOD,URINE TRACE-LYSE (NEGATIVE); PH,URINE 6.5 PH (5.0-7.5); PROTEIN,URINE NEGATIVE (NEGATIVE); UROBILINOGEN,URINE 0.2 (NORMAL) E.U./dL (NORMAL)
[2018-08-08 11:02] LABS: CLARITY,URINE CLEAR (CLEAR); HCG UR QUAL NEGATIVE
--- NOTE | 2018-08-08 11:37 | ED Physician Documentation ---
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 She states that she is also recently broken up with her boyfriend. She has had this happen to her twice previously and she is certain of her symptoms. She does state that she was transferred to [facility] in May and was diagnosed with a conversion disorder. She did require gait retraining. Review of Systems Constitutional: denies: Fever Eyes: denies: Decreased vision Ears: denies: Ear pain Nose: denies: Congestion Throat: denies: Sore throat Cardiac: denies: Chest pain / pressure Respiratory: denies: Dyspnea, Cough GI: denies: Abdominal Swelling, Nausea, Vomiting : reports: Discharge. denies: Dysuria, Frequency Skin: denies: Rash Musculoskeletal: denies: Neck pain, Back pain, Extremity pain PD PAST MEDICAL HISTORY - Past Medical History : Other - Past Surgical History Past Surgical History: No - Present Medications Home Medications: Ambulatory Orders Medication Instructions Recorded Confirmed Metronidazole [Flagyl] 500 mg PO BID #14 tablet 05/05/18 Metronidazole 500 mg PO BID #14 tablet 05/29/18 Clindamycin Phosphate [Clindesse] 5 gm VG DAILY #7 crm.er..g. 05/30/18 Metronidazole [Flagyl] 500 mg PO BID #14 tablet 08/08/18 - Allergies Allergies/Adverse Reactions: Allergies Allergy/AdvReac Type Severity Reaction Status Date / Time No Known Drug Allergies Allergy Verified 05/30/18 14:37 - Social History Does the pt smoke?: No Smoking Status: Never smoker Does the pt drink ETOH?: No Does the pt have substance abuse?: No - Immunizations Immunizations are current?: Yes - POLST Patient has POLST: No PD ED PE NORMAL - Vitals Vital signs reviewed: Yes (normal ) - General General: Alert and oriented X 3, No acute distress, Well developed/nourished - HEENT HEENT: Atraumatic, PERRL, EOMI - Respiratory Respiratory: No respiratory distress - Derm Derm: Normal color, Warm and dry, No rash - Extremities Extremities: No deformity, No edema - Neuro Neuro: Alert and oriented X 3, 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, No motor deficit, No sensory deficit, Normal speech Eye Opening: Spontaneous Motor: Obeys Commands Verbal: Oriented GCS Score: 15 - Psych Psych: Normal mood, Normal affect Results - Vitals Vitals: Vital Signs - 24 hr 08/08/18 10:28 Temperature 36.5 C Heart Rate 74 Respiratory 16 Rate Blood Pressure 127/63 O2 Saturation 99 Oxygen O2 Source Room air - Labs Labs: Laboratory Tests 08/08/18 10:50 Urine Color YELLOW Urine Clarity CLEAR Urine pH 6.5 Ur Specific Perry 1.025 Urine Protein NEGATIVE Urine Glucose (UA) NEGATIVE Urine Ketones TRACE Urine Occult Blood TRACE-LYSE Urine Nitrite NEGATIVE Urine Bilirubin NEGATIVE Urine Urobilinogen 0.2 (NORMAL) Ur Leukocyte Esterase NEGATIVE Ur Microscopic Review NOT INDICATED Urine Culture Comments NOT INDICATED Urine HCG, Qual NEGATIVE PD MEDICAL DECISION MAKING - ED course Complexity details: considered differential, d/w patient ED course: 22-year-old female with typical symptoms of bacterial vaginosis with a foul- smelling discharge similar to what she has had previously when this is been diagnosed recalls that she has had good luck with the use of oral metronidazole. She prefers pills versus cream. I did review her record and it does appear that she had a question of some reaction to the Flagyl when it was prescribed last time and clindamycin was substituted. Despite this she is still had the conversion reaction about 1 week later. I believe the patient will be okay with the Flagyl. - Sepsis Event Vital Signs: Vital Signs - 24 hr 08/08/18 10:28 Temperature 36.5 C Heart Rate 74 Respiratory 16 Rate Blood Pressure 127/63 O2 Saturation 99 Oxygen O2 Source Room air Departure - Departure Disposition: 01 Home, Self Care Clinical Impression: Bacterial vaginitis Condition: Stable Instructions: ED Vaginosis Bacterial Follow-Up: YOVANNY DE LUNA [Primary Care Provider] - Prescriptions: Metronidazole [Flagyl] 500 mg PO BID #14 tablet
[2018-08-08 11:46] VITALS: BP 124/62
== END 2018-08-08 11:46 | disposition home or self-care (01) ==
LOC: ED 10:26
DX: N76.0 Acute vaginitis (principal); B96.89 Other specified bacterial agents as the cause of diseases classified elsewhere
CPT/HCPCS: 81001; 81003; 81025; 87086; 99283

== ENCOUNTER 2018-12-02 11:59 | Emergency (ER) | payer OTHER ==
--- NOTE | 2018-12-02 15:04 | ED Physician Documentation ---
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 jnumbness and weakness now resolved states she has a long hx of similar sx - sometimes waist down sometimes one sided intially she was transferred to [facility] and per her report had a very extensive neuro work up and was told her sx were not due to a primary neuro process and was dx with cencersion disorder she has right sided numbness and weakness off and on again all weeekend with palpitations so came to ED today now sx are resolved and she want to go home no LOYOLA no fever Review of Systems Constitutional: denies: Fever, Chills Cardiac: denies: Chest pain / pressure Respiratory: denies: Dyspnea GI: denies: Abdominal Pain Neurologic: reports: Focal weakness, Numbness. denies: Headache PD PAST MEDICAL HISTORY - Past Medical History : Other - Past Surgical History Past Surgical History: No - Present Medications Home Medications: Ambulatory Orders Medication Instructions Recorded Confirmed Metronidazole [Flagyl] 500 mg PO BID #14 tablet 05/05/18 Metronidazole 500 mg PO BID #14 tablet 05/29/18 Clindamycin Phosphate [Clindesse] 5 gm VG DAILY #7 crm.er..g. 05/30/18 Metronidazole [Flagyl] 500 mg PO BID #14 tablet 08/08/18 - Allergies Allergies/Adverse Reactions: Allergies Allergy/AdvReac Type Severity Reaction Status Date / Time No Known Drug Allergies Allergy Verified 05/30/18 14:37 - Social History Does the pt smoke?: No Smoking Status: Never smoker Does the pt drink ETOH?: No Does the pt have substance abuse?: No - Immunizations Immunizations are current?: Yes - POLST Patient has POLST: No PD ED PE NORMAL - Vitals Vital signs reviewed: Yes - General General: Alert and oriented X 3 - HEENT HEENT: PERRL - Neck Neck: Supple, no meningeal sign - Cardiac Cardiac: RRR - Respiratory Respiratory: No respiratory distress, Clear bilaterally - Neuro Neuro: Alert and oriented X 3, 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
[2018-12-02 15:15] VITALS: BP 108/56
== END 2018-12-02 15:55 | disposition home or self-care (01) ==
LOC: EDUNIT# → ED 11:59
DX: F44.6 Conversion disorder with sensory symptom or deficit (principal)
CPT/HCPCS: 99282; 99283

== ENCOUNTER 2019-07-29 05:14 | Emergency (ER) | payer OTHER ==
--- NOTE | 2019-07-29 05:33 | ED Physician Documentation ---
PD HPI HEADACHE - Stated complaint Stated Complaint: SOA,DIZZY, HEAD PX - Chief complaint Chief Complaint: Neuro - History obtained from History obtained from: Patient - History of Present Illness Timing - onset: Today Timing - onset during: Rest Timing - details: Gradual onset Worst headache ever?: No: Worst headache ever? Location: Front, Global Quality: Throbbing, Aching Associated symptoms: Nausea, Numbness (she felt some trembling/spasm of right thumb. She has had muscle spasming like that or even paralysis of right side with or preceding headaches in the past. Had been seen in [facility] once for these and Dx with Conversion disorder (not sure if it complex migraine or hemiplegic migraine was considered).). No: Fever, Stiff neck, Vomiting, Vision changes Worsened by: Light Contributing factors: No: Anticoagulated, Recent illness, Trauma Similar symptoms before: Diagnosis (Dx with migraines and also with conversion disorder at times. Has not had the dyspnea symptoms with it previously.) Recently seen: Clinic (She was seen by her primary care last week and given prescription for ibuprofen and also started on citalopram at half dose daily and will start a full tablet starting tomorrow. She states she has been feeling okay since starting the citalopram though this morning awoke with a feeling of shortness of breath palpitations and then noticed her right hand and thumb trembling. She has had a trembling type symptom at times with migraines before but had not had the dyspnea and feeling of palpitations previously. She has had daily or chronic headaches for months interposed with more severe headaches every few days. She states she has been seen by her primary care regarding them. She had been transferred to [facility] once recently and evaluated there for a couple of days but she states she has not had any ongoing neurology evaluation. She is not sure if she has had neuro imaging as she got anxious when she was getting an MRI at [facility] and she says this study was not completed.) Review of Systems Constitutional: reports: Fatigue (for couple of weeks). denies: Fever, Chills Nose: denies: Rhinorrhea / runny nose, Congestion Throat: denies: Sore throat Cardiac: reports: Palpitations (this morning) Respiratory: reports: Dyspnea (this morning). denies: Cough GI: reports: Nausea. denies: Abdominal Pain, Vomiting, Diarrhea Neurologic: reports: Headache. denies: Focal weakness, Numbness, Confused, Altered mental status, Head injury PD PAST MEDICAL HISTORY - Past Medical History Past Medical History: Yes Neuro: Migraines, Other : Other Other Past Medical History: conversion disorder - Past Surgical History Past Surgical History: No - Present Medications Home Medications: Ambulatory Orders Medication Instructions Recorded Confirmed Citalopram [CeleXA] 10 mg PO DAILY 07/29/19 07/29/19 Ibuprofen [Motrin] 1 tab PO DAILY 07/29/19 07/29/19 Nortriptyline HCl 25 mg PO QPM #30 capsule 07/29/19 Ondansetron Odt [Zofran] 4 mg TL Q6H PRN #10 tablet 07/29/19 SUMAtriptan succinate [Sumatriptan 50 mg PO ONCE PRN #5 tablet 07/29/19 Succinate] dexAMETHasone [Decadron] 4 mg PO DAILY #5 tablet 07/29/19 - Allergies Allergies/Adverse Reactions: Allergies Allergy/AdvReac Type Severity Reaction Status Date / Time No Known Drug Allergies Allergy Verified 07/29/19 05:25 - Social History Does the pt smoke?: No Smoking Status: Never smoker Does the pt drink ETOH?: Yes Does the pt have substance abuse?: No - Immunizations Immunizations are current?: Yes - POLST Patient has POLST: No PD ED PE NORMAL - Vitals Vital signs reviewed: Yes - General General: Alert and oriented X 3, No acute distress, Well developed/nourished - HEENT HEENT: PERRL, EOMI (some light sensitivity), Pharynx benign - Neck Neck: Supple, no meningeal sign, No adenopathy - Cardiac Cardiac: RRR, No murmur - Respiratory Respiratory: Clear bilaterally - Abdomen Abdomen: Soft, Non tender - Back Back: No CVA TTP - Derm Derm: Normal color, Warm and dry - Extremities Extremities: No tenderness to palpate, Normal ROM s pain - Neuro Neuro: Alert and oriented X 3, 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 No: ST elevation c/w ischemia, ST depression Compare to prior EKG: Old EKG unavailable - Labs Labs: Laboratory Tests 07/29/19 07/29/19 07/29/19 05:33 05:33 05:33 WBC 3.8 L RBC 4.23 Hgb 12.3 Hct 37.2 MCV 87.9 MCH 29.1 MCHC 33.1 RDW 11.8 L Plt Count 176 MPV 9.9 Neut # (Auto) 1.5 Lymph # (Auto) 1.9 Burke # (Auto) 0.3 Eos # (Auto) 0.0 Baso # (Auto) 0.0 Absolute Nucleated RBC 0.00 Nucleated RBC % 0.0 ESR 7 Sodium 138 Potassium 3.6 Chloride 106 Carbon Dioxide 24 Anion Gap 8.0 BUN 11 Creatinine 0.8 Estimated GFR (MDRD) 110 Glucose 95 POC Whole Bld Glucose Calcium 9.3 Total Bilirubin 0.7 AST 18 ALT 13 Alkaline Phosphatase 48 Total Protein 7.3 Albumin 4.0 Globulin 3.3 Albumin/Globulin Ratio 1.2 Lipase 28 07/29/19 06:49 WBC RBC Hgb Hct MCV MCH MCHC RDW Plt Count MPV Neut # (Auto) Lymph # (Auto) Burke # (Auto) Eos # (Auto) Baso # (Auto) Absolute Nucleated RBC Nucleated RBC % ESR Sodium Potassium Chloride Carbon Dioxide Anion Gap BUN Creatinine Estimated GFR (MDRD) Glucose POC Whole Bld Glucose 82 Calcium Total Bilirubin AST ALT Alkaline Phosphatase Total Protein Albumin Globulin Albumin/Globulin Ratio Lipase - Rads (name of study) head CT Radiology: Prelim report reviewed (No acute process.), See rad report PD MEDICAL DECISION MAKING - ED course Complexity details: reviewed results, considered differential (The current dyspnea and palpitations are of unclear cause. She has good EKG and blood pre ssure and oxygen saturations. She feels better here. Consider possible anxiety attack or hyperventilation. She has not had any cough or cold symptoms. Her lungs are clear she does not sound like pneumonia or asthma. Regarding the ongoing headaches, we can get a CT scan as she does not believe she has had any prior neuro imaging. Also can check sed rate and blood count. She also complains of general fatigue so we will check electrolytes blood count and thyroid. Consider her symptoms this morning is potential side effects to the citalopram she just started last week. She can continue it for another couple of days and see if she has further symptoms. If so to could discontinue it. Otherwise could consider changing to something like nortriptyline which would get the antianxiety effect as well as help with sleep would also be useful for chronic daily headaches. She should consider discussing this with her primary care. 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 - Hemiplegic migraine, not intractable, without status migrainosus Dyspnea Qualifiers: Dyspnea type: shortness of breath Qualified Code(s): R06.02 - Shortness of breath; R06.00 - Dyspnea, unspecified; R06.01 - Orthopnea Fatigue Qualifiers: Fatigue type: unspecified Qualified Code(s): R53.83 - Other fatigue Condition: Stable Record reviewed to determine appropriate education?: Yes Instructions: ED Dyspnea Shortness of Breath, ED Headache Migraine Follow-Up: YOVANNY DE LUNA [Primary Care Provider] - Prescriptions: dexAMETHasone [Decadron] 4 mg PO DAILY #5 tablet Nortriptyline HCl 25 mg PO QPM #30 capsule Ondansetron Odt [Zofran] 4 mg TL Q6H PRN #10 tablet PRN Reason: Nausea / Vomiting SUMAtriptan succinate [Sumatriptan Succinate] 50 mg PO ONCE PRN #5 tablet PRN Reason: Migraine Comments: Stay well-hydrated. Your CT scan appears normal. Your blood tests are also good right now without any obvious cause for fatigue and tiredness. For your headaches, I would suggest using Decadron steroid anti-inflammatory daily for 5 days and see if that will improve it overall. For subsequent migraine type headaches he can use ondansetron for nausea combined with the ibuprofen and also try sumatriptan tablet and see if it stops the headache. For daily headaches, use the ibuprofen. You can continue the citalopram recently prescribed or alternatively could consider changing to nortriptyline which is used not only for anxiety but also is used but commonly for daily headaches and can help with sleep as well. You could discuss this with your primary care.
[2019-07-29 05:40] LABS: BASOPHILS % (AUTO) 0.5 %; EOSINOPHILS % (AUTO) 1.1 %; HGB - HEMOGLOBIN 12.3 g/dL (12.0-16.0); LYMPHOCYTES # (AUTO) 1.9 10^3/uL (1.5-3.5); LYMPHOCYTES % (AUTO) 51.1 %; MEAN CORPUSCULAR HEMOGLOBIN 29.1 pg (27.0-31.0); MEAN CORPUSCULAR HGB CONC 33.1 g/dL (32.0-36.0); MEAN CORPUSCULAR VOLUME 87.9 fL (81.0-99.0); MEAN PLATELET VOLUME 9.9 fL (7.9-10.8); MONOCYTES # (AUTO) 0.3 10^3/uL (0.0-1.0); MONOCYTES % (AUTO) 6.9 %; NEUTROPHILS # (AUTO) 1.5 10^3/uL (1.5-6.6); NEUTROPHILS % (AUTO) 40.1 %; PLT - PLATELET COUNT 176 10^3/uL (130-450); RED BLOOD COUNT 4.23 10^6/uL (4.20-5.40); RED CELL DISTRIBUTION WIDTH 11.8 % (12.0-15.0); WHITE BLOOD COUNT 3.8 x10^3/uL (4.8-10.8)
[2019-07-29 05:53] LABS: ALBUMIN/GLOBULIN RATIO 1.2 (1.0-2.2); BILIRUBIN,TOTAL 0.7 mg/dL (0.2-1.0); CALCIUM 9.3 mg/dL (8.5-10.3); CREATININE 0.8 mg/dL (0.4-1.0); TOTAL PROTEIN 7.3 g/dL (6.7-8.2)
--- NOTE | 2019-07-29 06:57 | CT Report ---
Reason: headaches for 1-2 weeks Procedure Date: 07/29/2019 Accession Number: [id number] / [id number] Procedure: CT - HEAD WO CPT Code: FULL RESULT: EXAM: CT HEAD EXAM DATE: 07/29/2019 06:44 AM. CLINICAL HISTORY: Headaches for 1-2 weeks. COMPARISON: HEAD W/O 06/08/2018 8:10 PM. TECHNIQUE: Multiaxial CT images were obtained from the foramen magnum to the vertex. Reformats: Sagittal and coronal. IV contrast: None. In accordance with CT protocol optimization, one or more of the following dose reduction techniques were utilized for this exam: automated exposure control, adjustment of mA and/or KV based on patient size, or use of iterative reconstructive technique. FINDINGS: Parenchyma: No intraparenchymal hemorrhage. No evidence of mass, midline shift, or CT findings of infarction. Sanchez-white differentiation is distinct. Extraaxial Spaces: Normal for age. No subdural or epidural collections identified. Ventricles: Normal in size and position. Sinuses and Orbits: Imaged paranasal sinuses, orbits, and mastoids show no significant abnormality. Bones: No evidence of fracture or calvarial defect. Other: None. IMPRESSION: Normal head CT. RADIA
[2019-07-29 08:08] VITALS: BP 106/69
== END 2019-07-29 08:09 | disposition home or self-care (01) ==
LOC: ED 05:14
DX: G43.409 Hemiplegic migraine, not intractable, without status migrainosus (principal); R00.2 Palpitations; R06.02 Shortness of breath; R06.01 Orthopnea; R53.83 Other fatigue
CPT/HCPCS: 36415; 70450; 80053; 83690; 84443; 85025; 85651; 93005; 99284

== ENCOUNTER 2019-11-10 11:26 | Emergency (ER) | payer OTHER ==
[2019-11-10] MEDS ORDERED: PROCHLORPERAZINE 10 MG/2 ML VIAL IVP STA (15:15)
[2019-11-10] MEDS ORDERED: diphenhydrAMINE INJ 50 MG/ML VIAL IVP STA (15:15)
[2019-11-10] MEDS ORDERED: SODIUM CHLORIDE 0.9% 1,000 ML IV ONE (15:15)
--- NOTE | 2019-11-10 15:30 | ED Physician Documentation ---
PD HPI HEADACHE - Stated complaint Stated Complaint: HEADACHE X3 DAYS - Chief complaint Chief Complaint: Neuro - History obtained from History obtained from: Patient - History of Present Illness Timing - onset: How many days ago (4) Timing - onset during: Rest Timing - duration: Days (3) Timing - details: Gradual onset Pain level max: 7 Pain level now: 6 Worst headache ever?: No: Worst headache ever? Location: Global Quality: Throbbing, Aching Associated symptoms: No: Fever, Stiff neck, Nausea, Vomiting, Weakness, Numbness, Syncope, Seizure, Eye pain, Vision changes Improved by: Rest, Dark room Worsened by: Light, Noise - Additional information Additional information: Patient is 4 days status post wisdom tooth extraction. She states she has had her usual migraine since that time. Took Imitrex, Motrin and oxycodone without relief. No fevers. Worse with light and sound. Better with rest. Review of Systems Constitutional: denies: Fever, Chills Throat: denies: Sore throat Cardiac: denies: Chest pain / pressure Respiratory: denies: Cough GI: denies: Vomiting, Diarrhea : denies: Now EGA Skin: denies: Rash PD PAST MEDICAL HISTORY - Past Medical History Neuro: Migraines, Other : Other - Past Surgical History Past Surgical History: No - Present Medications Home Medications: Ambulatory Orders Medication Instructions Recorded Confirmed Citalopram [CeleXA] 10 mg PO DAILY 07/29/19 07/29/19 Ibuprofen [Motrin] 1 tab PO DAILY 07/29/19 07/29/19 Nortriptyline HCl 25 mg PO QPM #30 capsule 07/29/19 Ondansetron Odt [Zofran] 4 mg TL Q6H PRN #10 tablet 07/29/19 SUMAtriptan succinate [Sumatriptan 50 mg PO ONCE PRN #5 tablet 07/29/19 Succinate] dexAMETHasone [Decadron] 4 mg PO DAILY #5 tablet 07/29/19 - Allergies Allergies/Adverse Reactions: Allergies Allergy/AdvReac Type Severity Reaction Status Date / Time No Known Drug Allergies Allergy Verified 11/10/19 11:38 - Social History Does the pt smoke?: No Smoking Status: Never smoker Does the pt drink ETOH?: Yes Does the pt have substance abuse?: No - Immunizations Immunizations are current?: Yes - POLST Patient has POLST: No PD ED PE NORMAL - Vitals Vital signs reviewed: Yes - General General: Alert and oriented X 3, No acute distress, Well developed/nourished - HEENT HEENT: Atraumatic, PERRL, EOMI, Ears normal, Moist mucous membranes, Other (No evidence of infection at the extraction sites. 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 No evidence of subarachnoid hemorrhage. She would like to go home at this time. Patient counseled regarding signs and symptoms for which I believe and urgent re-evaluation would be necessary. Patient with good understanding of and agreement to plan and is comfortable going home at this time This document was made in part using voice recognition software. While efforts are made to proofread this document, sound alike and grammatical errors may occur. No fevers. No meningitis. No encephalitis. Departure - Departure Disposition: Home, Self Care Clinical Impression: Migraine Qualifiers: Migraine type: unspecified Status migrainosus presence: without status migrainosus Intractability: not intractable Qualified Code(s): G43.909 - Migraine, unspecified, not intractable, without status migrainosus Condition: Good Instructions: ED Headache Migraine Follow-Up: YOVANNY DE LUNA [Primary Care Provider] - Within 1 week Comments: Go home and rest. Drink plenty of fluids. Return if you worsen.
[2019-11-10] MEDS: KETOROLAC 30 MG/ML VIAL IVP STA (15:55)
[2019-11-10 16:49] VITALS: BP 128/72
== END 2019-11-10 16:49 | disposition home or self-care (01) ==
LOC: ED 11:26
DX: G43.909 Migraine, unspecified, not intractable, without status migrainosus (principal); Z98.818 Other dental procedure status
CPT/HCPCS: 96374; 96375; 99283; 99284; J1200